=== PATIENT | female | born 1995 | race Hispanic/Latino ===

== ENCOUNTER 2019-03-28 08:55 | Inpatient (IN) | payer OTHER ==
[~2019-03-28] VITALS: Ht 157.5 cm; Wt 81.4 kg
[2019-03-28] MEDS ORDERED: MORPHINE SULFATE INJ 4 MG/ML INJ 1ML IV PRN (10:30)
[2019-03-28] MEDS ORDERED: HYDROGEN PEROXIDE 120 ML BTL ONE (11:22)
[2019-03-28] MEDS ORDERED: NEOSTIGMINE 1 MG/ML 10ML VIAL ONE (11:22)
[2019-03-28] MEDS ORDERED: BUPIVACAINE 0.25% 30ML SDV INJ ONE (11:23)
[2019-03-28 11:24] LABS: BASOPHILS % 0.3 % (0.0-1.0); EOSINOPHILS # (AUTO) 0.1 (0.0-0.4); EOSINOPHILS % 0.4 % (0.0-6.0); HEMATOCRIT 37.8 % (34.2-44.1); HEMOGLOBIN 12.6 g/dL (12.0-16.0); LYMPHOCYTES % 12.7 % (18.0-39.1); MEAN CORPUSCULAR HEMOGLOBIN 29.2 pg (28-32); MEAN CORPUSCULAR HGB CONC 33.3 g/dL (31-35); MEAN CORPUSCULAR VOLUME 87.7 fL (81-99); MONOCYTES # (AUTO) 0.7 (0.2-0.8); MONOCYTES % 4.4 % (4.4-11.3); NEUTROPHILS # (AUTO) 12.8 (2.1-6.9); NEUTROPHILS % 81.8 % (38.7-80.0); PLATELET COUNT 324 x10e3/uL (140-360); RED BLOOD COUNT 4.31 x10e6/uL (3.6-5.1); RED CELL DISTRIBUTION WIDTH 12.6 % (11.7-14.4)
[2019-03-28] MEDS ORDERED: ACETAMINOPHEN 1000 MG/100 ML 100 ML IV ONE (11:25)
--- NOTE | 2019-03-28 11:28 | NUR ---
SURGERY CONSENT SIGNED AND PLACED ON CHART
--- NOTE | 2019-03-28 11:31 | NUR ---
PT BEING TRANSPORTED BY OR TECH TO OR HOLDING AT THIS TIME.
[2019-03-28 11:35] LABS: ALANINE AMINOTRANSFERASE 95 IU/L (0-55); ALBUMIN 3.3 g/dL (3.5-5.0); ALBUMIN/GLOBULIN RATIO 0.7 (0.8-2.0); ALKALINE PHOSPHATASE 142 IU/L (40-150); ANION GAP 11.9 mmol/L (8-16); BLOOD UREA NITROGEN 12 mg/dL (7-26); BUN/CREATININE RATIO 18 (6-25); CARBON DIOXIDE 28 mmol/L (22-29); CHLORIDE 103 mmol/L (98-107); CREATININE, SERUM 0.65 mg/dL (0.57-1.11); EST GLOMERULAR FILTRATION RATE > 60 ML/MIN (60-); GLUCOSE 97 mg/dL (74-118); POTASSIUM 3.9 mmol/L (3.5-5.1); SODIUM 139 mmol/L (136-145)
[2019-03-28] MEDS ORDERED: SODIUM CHLORIDE 0.9% 1000ML 1,000 ML IV SCH (12:46)
[2019-03-28] MEDS ORDERED: ACETAMINOPHEN 325 MG TAB PO PRN (13:00)
[2019-03-28] MEDS ORDERED: HYDROMORPHONE 1MG/1ML INJ IV PRN (13:00)
[2019-03-28] MEDS ORDERED: HYDROCODONE/APAP 7.5MG-325MG 1 EA TAB PO PRN (13:00)
--- NOTE | 2019-03-28 13:43 | Operative Report ---
DATE OF PROCEDURE: 03/28/2019 SURGEON: Ramin Moe MD PREOPERATIVE DIAGNOSIS: Pilonidal abscess. POSTOPERATIVE DIAGNOSIS: Pilonidal abscess. PROCEDURE PERFORMED: Incision and drainage of pilonidal abscess. INDICATION AND FINDINGS: This is a 24-year-old female patient admitted with pain and swelling of the presacral region secondary to pilonidal abscess. INTRAOPERATIVE FINDINGS: Pilonidal abscess with surrounding mild cellulitis. DESCRIPTION OF PROCEDURE: With the patient lying on the operative table in the supine position after administration of general anesthesia, she was prepped and draped for incision and drainage of pilonidal abscess. The patient was placed in the left lateral decubitus position and then an area of skin close to the midline that was somewhat necrotic was excised in an elliptical fashion. The cavity entered. Loculations broken down. Necrotic tissue was debrided down to viable tissue. The cavity which measured about 1.5 x 1 inch was then irrigated. Bleeding points cauterized and then packed with Xeroform and Betadine sponge. Sterile dressing was applied. The patient tolerated the procedure well, taken to recovery room in stable condition. MD BRITTANI Leung/MODL /[id number]
[2019-03-28] MEDS ORDERED: KETOROLAC TROMETHAMINE 30 MG/ML VIAL IV PRN (14:00)
[2019-03-28] MEDS ORDERED: ONDANSETRON HCL INJ 2MG/ML 2ML 2 MG/ML VIAL IV PRN ×2 (14:00)
[2019-03-28] MEDS ORDERED: CEFTRIAXONE SOD 1 GM/NS 50 ML 50 ML IV SCH (14:00)
[2019-03-28] MEDS ORDERED: CLINDAMYCIN PHOS 900MG/ 50ML 50 ML IV SCH (14:00)
[2019-03-28] MEDS ORDERED: PROPOFOL IV EMULSION 10 MG/ML 20 ML VIAL ONE (14:07)
[2019-03-28] MEDS ORDERED: SEVOFLURANE INHAL SOLN 250 ML PEN BTL ONE (14:07)
[2019-03-28] MEDS ORDERED: DEXAMETHASONE SOD PHOS INJ 4 MG/ML VIAL ONE (14:07)
[2019-03-28] MEDS ORDERED: LIDOCAINE HCL 2% LOCAL INJ 5 ML SDV VIAL INJ ONE (14:07)
[2019-03-28] MEDS ORDERED: ONDANSETRON HCL INJ 2MG/ML 2ML 2 MG/ML VIAL ONE (14:07)
[2019-03-28] MEDS: CEFTRIAXONE SOD 1 GM/NS 50 ML 50 ML IV SCH (14:57)
[2019-03-28] MEDS: DEXTROSE 5%/LACTATED RINGERS 1,000 ML IV SCH (14:57)
[2019-03-28] MEDS ORDERED: MIDAZOLAM HCL 2 MG/2 ML VIAL ONE (15:05)
[2019-03-28] MEDS ORDERED: FENTANYL CITRATE/PF 100MCG/2 ML INJ ONE (15:05)
--- NOTE | 2019-03-28 15:05 | NUR ---
Recvd patient from PACU. AAOx3, dressing on rectal area is intact , not in any distress, call light in reach. at bed side
[2019-03-28 15:08] VITALS: BP 112/56
[2019-03-28 15:12] VITALS: BP 112/56
[2019-03-28] MEDS: CLINDAMYCIN PHOS 900MG/ 50ML 50 ML IV SCH ×2 (15:20→22:00)
[2019-03-28 20:00] VITALS: BP 119/58
--- NOTE | 2019-03-28 20:18 | NUR ---
RECEIVED PT IN BEDAOX3 DRESSING AT RECTAL AREA IS DRY AND INTACT RESPIRATIONS ARE EVEN AND UNLABORED LEFT AC 20G LR RUNNING AT 75 CC/HR FAMILY AT THE BEDSIDE .CALL LIGHT WITH IN REACH .CONTINUE TO MONITOR
[2019-03-28 20:32] VITALS: BP 119/58
[2019-03-29] VITALS (8 sets, daily range): BP systolic 102–118; BP diastolic 48–59
[2019-03-29] MEDS: ONDANSETRON HCL INJ 2MG/ML 2ML 2 MG/ML VIAL IV PRN ×4 (00:29→21:00)
[2019-03-29] MEDS: HYDROMORPHONE 1MG/1ML INJ IV PRN ×4 (00:29→21:00)
[2019-03-29] MEDS: CLINDAMYCIN PHOS 900MG/ 50ML 50 ML IV SCH ×3 (06:00→21:55)
--- NOTE | 2019-03-29 06:19 | NUR ---
PT C/O PAIN AND MEDICATED WITH DILAUDID.PT RESTING DRESS DRY AND INTACT.FAMILY ATTHE BEDSIDE .CALL LIGHT WITH IN REACH .CONTINUE TO MONITOR
--- NOTE | 2019-03-29 07:26 | NUR ---
pt alert resp even and unlabored pt able to make needs known, call light in reach, family member at bedside.
--- NOTE | 2019-03-29 07:55 | NUR ---
BEDSIDE REPORT GIVEN ON COMING TO THE REPORT
[2019-03-29] MEDS: DEXTROSE 5%/LACTATED RINGERS 1,000 ML IV SCH (09:54)
[2019-03-29] MEDS: CEFTRIAXONE SOD 1 GM/NS 50 ML 50 ML IV SCH (11:56)
[2019-03-29] MEDS: HYDROCODONE/APAP 7.5MG-325MG 1 EA TAB PO PRN (14:00)
--- NOTE | 2019-03-29 19:30 | NUR ---
report given to on coming nurse, pt stable at this time.
--- NOTE | 2019-03-29 19:55 | NUR ---
RECEIVED PT IN BED AOX3 .DENIES PAIN AT THIS TIME DRESSING DRY AND INTACT .FAMILY ATBEDSIDE .CALL LIGHT WITH IN REACH .CONTINUE TO MONITOR
[2019-03-30] VITALS: BP 117/58
[2019-03-30 04:00] VITALS: BP 121/57
[2019-03-30] MEDS: HYDROMORPHONE 1MG/1ML INJ IV PRN (04:00)
[2019-03-30] MEDS: ONDANSETRON HCL INJ 2MG/ML 2ML 2 MG/ML VIAL IV PRN (04:00)
[2019-03-30] MEDS: HYDROCODONE/APAP 7.5MG-325MG 1 EA TAB PO PRN ×2 (05:29→13:20)
[2019-03-30] MEDS: DEXTROSE 5%/LACTATED RINGERS 1,000 ML IV SCH (05:54)
[2019-03-30] MEDS: CLINDAMYCIN PHOS 900MG/ 50ML 50 ML IV SCH (06:00)
--- NOTE | 2019-03-30 06:35 | NUR ---
PT RESTED DURING THE NIGHT C/O PAIN AND GIVEN ORDERED PAIN MEDICATION .FAMILY AT THE BEDSIDE .CALL LIGHT WITH IN REACH .CONTINUE TO MONITOR
--- NOTE | 2019-03-30 07:14 | NUR ---
BEDSIDE REPORT GIVEN TO THE ONCOMING NURSE
[2019-03-30 07:20] VITALS: BP 115/51
--- NOTE | 2019-03-30 07:20 | NUR ---
PATIENT ASSISTED TO THE RESTROOM AND BACK TO BED. DRESSING INTACT TO BUTTOCK. BED IN LOWER POSITION, CALL LIGHT AT REACH.
[2019-03-30 08:00] VITALS: BP 115/51
--- NOTE | 2019-03-30 11:42 | NUR ---
PATIENT ASSISTED WITH SHOWER AND BACK TO BED. PACKING REMOVED FROM BUTTOCK WOUND AND TEACHING PROVIDED TO FAMILY BY MD. IN BED WITH CALL LIGHT AT REACH.
[2019-03-30 11:55] VITALS: BP 137/62
--- NOTE | 2019-03-30 12:31 | Discharge Summary ---
DISCHARGE DIAGNOSIS: Pilonidal abscess. PROCEDURES PERFORMED: Incision and drainage of pilonidal abscess with debridement of necrotic tissue on 03/28/2019. HISTORY OF PRESENT ILLNESS AND HOSPITALIZATION COURSE: Otherwise, healthy 24-year-old female, admitted with pilonidal abscess. The patient the same day of admission, underwent incision and drainage and debridement of necrotic tissue. Culture and sensitivities were taken that are pending. The patient was treated with intravenous antibiotics with clindamycin IV and Rocephin. The patient was discharged home on the second postop day. She was afebrile. Tolerating a regular diet well. There were no spikes. The cultures as previously stated were pending. The dressing was changed. The abscess was well drained. There was no evidence of cellulitis of undrained collection. She was discharged home on clindamycin 300 t.i.d. for a week and Septra 1 p.o. b.i.d. for 10 days. The was instructed in doing wet-to-dry dressings. She will be followed up in the office on Thursday following discharge. MD BRITTANI Leung/WILL /[id number]
[2019-03-30] MEDS ORDERED: TYLENOL WITH C1 EACH PO (14:31)
[2019-03-30] MEDS ORDERED: CLINDAMYCIN HC150 MG PO (14:33)
--- NOTE | 2019-03-30 15:30 | NUR ---
PATIENT DISCHARGED HOME. DISCHARGE INSTRUCTIONS, PRESCRIPTIONS, AND FOLLOW UP GIVEN TO PATIENT AND , THEY VERBALIZED UNDERSTANDING. IV TO LEFT AC REMOVED WITH TIP INTACT. ALL PERSONAL ITEMS TAKEN WITH PATIENT. REFUSED WHEEL CHAIR, BUT WAS ACCOMPANIED BY HOSPITAL STAFF TO FRONT LOBBY IN STABLE CONDITION.
== END 2019-03-30 15:26 | disposition home or self-care (01) | DRG 572 ==
LOC: EDBD 09:03 → ER 09:03 → OR 11:23 → INTOOBSV 12:50 → PACU V 12:50 → MED/SURG3 13:51 → OBSVTOIN 03-29 15:51
PROVIDERS: ADMIT Surgery; ATTEND Surgery
PROC: 0JB90ZZ Excision of Buttock Subcutaneous Tissue and Fascia, Open Approach (ICD-10-PCS; principal; 2019-03-29)
DX: L05.01 Pilonidal cyst with abscess (principal)
CPT/HCPCS: 36415; 80053; 82948; 85025; 99284; G0378; J0696; J1100; J1170; J2001; J2250; J2270; J2405; J2710; J3010; J7030

== ENCOUNTER → 2019-06-17 | Day surgery (SDC) | payer OTHER ==
[2019-06-16 10:05] LABS: BASOPHILS % 0.5 % (0.0-1.0); EOSINOPHILS # (AUTO) 0.1 (0.0-0.4); EOSINOPHILS % 1.1 % (0.0-6.0); HEMATOCRIT 37.9 % (34.2-44.1); HEMOGLOBIN 12.3 g/dL (12.0-16.0); LYMPHOCYTES # (AUTO) 2.4 (1.0-3.2); LYMPHOCYTES % 37.7 % (18.0-39.1); MEAN CORPUSCULAR HEMOGLOBIN 29.9 pg (28-32); MEAN CORPUSCULAR HGB CONC 32.5 g/dL (31-35); MONOCYTES # (AUTO) 0.3 (0.2-0.8); MONOCYTES % 5.3 % (4.4-11.3); NEUTROPHILS # (AUTO) 3.5 (2.1-6.9); NEUTROPHILS % 55.1 % (38.7-80.0); PLATELET COUNT 243 x10e3/uL (140-360); RED BLOOD COUNT 4.12 x10e6/uL (3.6-5.1); RED CELL DISTRIBUTION WIDTH 12.7 % (11.7-14.4)
[~2019-06-17] MED LIST: ACETAMINOPHEN 1000 MG/100 ML IV ONE; BUPIVACAINE 0.5%/EPI 30 ML SDV INJ ONE; CLINDAMYCIN HC150 MG PO; DEXAMETHASONE SOD PHOS INJ 4 MG/ML VIAL ONE; FENTANYL CITRATE/PF 100MCG/2 ML INJ ONE; GLYCOPYRROLATE INJ 0.2 MG/ML VIAL ONE; HYDROGEN PEROXIDE 120 ML BTL ONE; LIDOCAINE HCL 2% LOCAL INJ 5 ML SDV VIAL INJ ONE; MEPERIDINE HCL INJ 25 MG/ML VIAL ONE; MIDAZOLAM HCL 2 MG/2 ML VIAL ONE; NEOSTIGMINE 1 MG/ML 10ML VIAL ONE; ONDANSETRON HCL INJ 2MG/ML 2ML 2 MG/ML VIAL ONE; PROPOFOL IV EMULSION 10 MG/ML 20 ML VIAL ONE; ROCURONIUM BROMIDE 10 MG/ML 5ML VIAL ONE; SEVOFLURANE INHAL SOLN 250 ML PEN BTL ONE; TYLENOL WITH C1 EACH PO
--- NOTE | 2019-06-17 12:00 | Operative Report ---
DATE OF PROCEDURE: 06/17/2019 SURGEON: Ramin Moe MD PREOPERATIVE DIAGNOSIS: Pilonidal disease, status post I and D. POSTOPERATIVE DIAGNOSIS: Pilonidal disease, status post I and D. PROCEDURE PERFORMED: Excision of pilonidal disease previously drained primary closure with flap. GENERAL DENTIST/OWNER: DORI Tyler ESTIMATED BLOOD LOSS: Minimal. DRAINS: None. COMPLICATIONS: None. INDICATION AND FINDINGS: The patient is a 24-year-old female who had undergone several weeks ago incision and drainage of pilonidal disease abscess now admitted for definitive surgical treatment. INTRAOPERATIVE FINDINGS: The patient had a midline healed scar located in the presacral region without any evidence of infection. The area was excised in an elliptical fashion down to the presacral fascia, but not including the presacral fascia. The wound was then closed after raising full subcutaneous flaps. DESCRIPTION OF PROCEDURE: With the patient lying on the operative table in the supine position after administration of general anesthesia, she was prepped and draped for excision of pilonidal disease with flap closure. An elliptical incision was made that encompassed the scar and any residual palpable induration and the dissection was carried down through the skin and subcutaneous tissue down to the presacral fascia all of that was excised with no encounter any scar tissue in that location and there was no active infection. After we excised the specimen, we went ahead and cauterized bleeding points copiously irrigated the wound with saline and Betadine and then we raised full subcutaneous flaps with electrocautery to the right and to the left of the midline and then approximated the soft tissues with a combination of 0 Vicryl and 2-0 Vicryl. The skin was closed using 3-0 silk except for the middle portion of the wound which was closed using 0 silk. 0.5% Marcaine with epinephrine was given as a buccal block at the end of the case. The patient tolerated the procedure well, was taken to recovery room in stable condition. MD BRITTANI Leung/NOAL /[id number]
[2019-06-17 13:05] VITALS: BP 105/75
--- OUTSIDE RECORDS SUMMARY | 2019-06-24 11:50 | XMS REPORT ---
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 Conditions or Problems Problem Name Problem Code Onset Date Status Entry Date Provider Comment Standard Description Annotate Nausea and Vomiting in Active Rula Arreaga MD Unspecified vomiting of , antepartum condition or complication Supervision of normal first , third trimester V22.0 Active Rula Arreaga MD Supervision of normal first BMI 32.0-32.9 Active Lila Averkenyetta Body Mass Index 32.0-32.9, adult Musculoskeletal pain 729.1 Active Lila Quan Myalgia and myositis, unspecified Back pain 724.5 Active Rula Arreaga MD Backache, unspecified Obesity (BMI=30-39.9) Active Rula Arreaga MD Obesity, unspecified Rubella non-immune V49.89 Active Rula Arreaga MD Other specified conditions influencing health status 39 Weeks Gestation of Inactive Edilia OSBORN Encounter for unspecified screening of mother 39 Weeks Gestation of Inactive Edilia OSBORN 38 Weeks Gestation of Inactive Rula Arreaga MD Encounter for unspecified screening of mother 38 Weeks Gestation of Inactive Rula Arreaga MD Decreased movement, third trimester ICD-655.73 Inactive Edilia Christopher WHNP Gestation period greater than or equal to 37 weeks ICD-765.29 Inactive Edilia Christopher WHNP 36 weeks gestation of ICD-V28.9 Inactive Edilia Christopher WHNP Encounter for supervision of other normal , third trimester Inactive Edilia Christopher WHNP Supervision, other normal ICD-V22.1 Inactive Edilia Christopher WHNP 35 Weeks Gestation of Inactive Rula Arreaga MD Encounter for unspecified screening of mother 35 Weeks Gestation of Inactive Rula Arreaga MD Supervision of other high risk pregnancies, third trimester Inactive Edilia Christopher WHNP Vaginal bleeding ICD-623.8 Inactive Edilia Christopher WHNP 34 weeks gestation of ICD-V28.9 Inactive Edilia Christopher WHNP Supervision, other normal ICD-V22.1 Inactive Edilia Christopher WHNP 27 weeks gestation of ICD-V28.9 Inactive Edilia Christopher WHNP Supervision of other normal ICD-V22.1 Inactive Edilia Christopher WHNP 25 weeks gestation of ICD-V28.9 Inactive Edilia Christopher WHNP Supervision of other normal , second trimester ICD-V22.1 Inactive Edilia Christopher WHNP 13 weeks gestation of V28.9 Inactive Rula Arreaga MD Encounter for unspecified screening of mother 16 weeks gestation of ICD-V28.9 Inactive Edilia OSBORN 11 weeks gestation of ICD-V28.9 Inactive Edilia OSBORN Less than 8 weeks gestation of ICD-V28.9 Inactive Edilia OSBORN Supervision of normal first , first trimester V22.0 Inactive Rula Arreaga MD Supervision of normal first Supervision of normal first , second trimester ICD-V22.0 Inactive Edilia OSBORN Decreased movement, third trimester 655.73 Resolved Edilia OSBORN Decreased movements affecting management of mother, antepartum condition or complication Gestation period greater than or equal to 37 weeks 765.29 Resolved Edilia OSBORN 37 or more completed weeks of gestation 36 weeks gestation of V28.9 Resolved Edilia OSBORN Encounter for unspecified screening of mother Encounter for supervision of other normal , third trimester Resolved Edilia OSBORN Supervision of other normal Supervision, other normal V22.1 Resolved Edilia OSBORN Supervision of other normal Supervision of other high risk pregnancies, third trimester Resolved Edilia OSBORN Other high-risk Vaginal bleeding 623.8 Resolved Edilia OSBORN Other specified noninflammatory disorders of vagina 34 weeks gestation of V28.9 Resolved Edilia OSBORN Encounter for unspecified screening of mother Supervision, other normal V22.1 Resolved Edilia OSBORN Supervision of other normal 27 weeks gestation of V28.9 Resolved Edilia OSBORN Encounter for unspecified screening of mother Supervision of other normal V22.1 Resolved Edilia OSBORN Supervision of other normal 25 weeks gestation of V28.9 Resolved Edilia OSBORN Encounter for unspecified screening of mother Supervision of other normal , second trimester V22.1 Resolved Edilia OSBORN Supervision of other normal 16 weeks gestation of V28.9 Resolved Edilia OSBORN Encounter for unspecified screening of mother 11 weeks gestation of V28.9 Resolved Edilia OSBORN Encounter for unspecified screening of mother Less than 8 weeks gestation of V28.9 Resolved Edilia OSBORN Encounter for unspecified screening of mother Supervision of normal first , second trimester V22.0 Resolved Edilia OSBORN Supervision of normal first Medication List Medication Instructions Start Date Stop Date Generic Name NDC Status Provider Patient Instruction VITAFOL ULTRA 29-0.6-0.4-200 MG ORAL CAPSULE take 1 capsule daily VITAFOL ULTRA 29-0.6-0.4-200 MG ORAL CAPSULE PRENAT-FE [id number] Inactive VITAFOL ULTRA 29-0.6-0.4-200 MG ORAL CAPSULE take 1 capsule daily PRENAT-FE [id number] No Longer Active Rula Arreaga MD Active Vital Signs Date Name Value Unit Range Description blood pressure, diastolic 83 mm[Hg] BP sorensen blood pressure, systolic 136 mm[Hg] BP sys height E&M 63 [in_us] Bdy height pulse rate E&M 84 /min Heart rate respiratory rate E&M 16 /min Resp rate temperature E&M 97.8 [degF] Body temperature weight E&M 207 [lb_av] Weight Measured blood pressure, diastolic 85 mm[Hg] BP sorensen blood pressure, systolic 124 mm[Hg] BP sys height E&M 63 [in_us] Bdy height pulse rate E&M 96 /min Heart rate respiratory rate E&M 18 /min Resp rate temperature E&M 97.9 [degF] Body temperature weight E&M 203 [lb_av] Weight Measured blood pressure, diastolic 85 mm[Hg] BP sorensen blood pressure, systolic 125 mm[Hg] BP sys height E&M 63 [in_us] Bdy height pulse rate E&M 91 /min Heart rate respiratory rate E&M 20 /min Resp rate temperature E&M 97.7 [degF] Body temperature weight E&M 199.0 [lb_av] Weight Measured blood pressure, diastolic 80 mm[Hg] BP sorensen blood pressure, systolic 122 mm[Hg] BP sys height E&M 63 [in_us] Bdy height pulse rate E&M 93 /min Heart rate respiratory rate E&M 18 /min Resp rate temperature E&M 98.2 [degF] Body temperature weight E&M 195 [lb_av] Weight Measured blood pressure, diastolic 82 mm[Hg] BP sorensen blood pressure, systolic 115 mm[Hg] BP sys height E&M 63 [in_us] Bdy height pulse rate E&M 87 /min Heart rate temperature E&M 98.6 [degF] Body temperature blood pressure, diastolic 82 mm[Hg] BP sorensen blood pressure, systolic 126 mm[Hg] BP sys height E&M 63 [in_us] Bdy height pulse rate E&M 98 /min Heart rate respiratory rate E&M 20 /min Resp rate temperature E&M 98.2 [degF] Body temperature weight E&M 195 [lb_av] Weight Measured blood pressure, diastolic 79 mm[Hg] BP sorensen blood pressure, systolic 122 mm[Hg] BP sys pulse rate E&M 93 /min Heart rate respiratory rate E&M 14 /min Resp rate weight E&M 184 [lb_av] Weight Measured blood pressure, diastolic 79 mm[Hg] BP sorensen blood pressure, systolic 113 mm[Hg] BP sys height E&M 63 [in_us] Bdy height pulse rate E&M 80 /min Heart rate temperature E&M 98.7 [degF] Body temperature weight E&M 182.20 [lb_av] Weight Measured blood pressure, diastolic 80 mm[Hg] BP sorensen blood pressure, systolic 124 mm[Hg] BP sys pulse rate E&M 91 /min Heart rate respiratory rate E&M 14 /min Resp rate temperature E&M 98.6 [degF] Body temperature weight E&M 184 [lb_av] Weight Measured blood pressure, diastolic 78 mm[Hg] BP sorensen blood pressure, systolic 124 mm[Hg] BP sys pulse rate E&M 91 /min Heart rate respiratory rate E&M 14 /min Resp rate temperature E&M 98.0 [degF] Body temperature weight E&M 179 [lb_av] Weight Measured weight E&M 176 LBS [lb_av] Weight Measured blood pressure, diastolic 80 mm[Hg] BP sorensen blood pressure, systolic 130 mm[Hg] BP sys height E&M 63 [in_us] Bdy height temperature E&M 98.0 [degF] Body temperature weight E&M 176 [lb_av] Weight Measured blood pressure, diastolic 80 mm[Hg] BP sorensen blood pressure, systolic 122 mm[Hg] BP sys height E&M 63 [in_us] Bdy height pulse rate E&M 90 /min Heart rate temperature E&M 98.1 [degF] Body temperature weight E&M 171.20 [lb_av] Weight Measured blood pressure, diastolic 71 mm[Hg] BP sorensen blood pressure, systolic 106 mm[Hg] BP sys height E&M 63 [in_us] Bdy height pulse rate E&M 84 /min Heart rate respiratory rate E&M 14 /min Resp rate temperature E&M 98.2 [degF] Body temperature weight E&M 169 [lb_av] Weight Measured blood pressure, diastolic 82 mm[Hg] BP sorensen blood pressure, systolic 123 mm[Hg] BP sys height E&M 63 [in_us] Bdy height pulse rate E&M 80 /min Heart rate respiratory rate E&M 14 /min Resp rate temperature E&M 98.4 [degF] Body temperature weight E&M 171 [lb_av] Weight Measured Diagnostic Results Date Name Value Unit Range Description Lab Report: [id number] 7+Alc-Unbund, CBC With Differential/Platelet, Hgb Fra ... - Blood bank Rh antibody Negative Negative Lab Report: [id number] 7+Alc-Unbund, CBC With Differential/Platelet, Hgb Fra ... - Toxicology benzodiazepine screen, urine Negative Sscrqf=[id number] Lab Report: CBC With Differential/Platelet, Comp. Metabolic Panel (14), ... - Chemistry lactate dehydrogenase, serum 190 [iU]/L 119-226 Lab Report: AFP Tetra - Chemistry human chorionic gonadotropin, total, serum 33038 m[iU]/mL Lab Report: AFP Tetra - Lab dimeric inhibition A, multiples of median 0.88 (?) {MoM} Lab Report: [id number] 7+Alc-Unbund, CBC With Differential/Platelet, Hgb Fra ... - Blood bank ABO blood group O Office Visit: Return: s10 - Genetics/fertility test, type home Lab Report: [id number] 7+Alc-Unbund, CBC With Differential/Platelet, Hgb Fra ... - Genetics/fertility cystic fibrosis, screen Comment: Lab Report: [id number] 7+Alc-Unbund, CBC With Differential/Platelet, Hgb Fra ... - Chemistry hepatitis B surface antigen Negative Negative Lab Report: CBC With Differential/Platelet, Comp. Metabolic Panel (14), ... - Chemistry uric acid, serum 5.1 mg/dL 2.5-7.1 chloride, serum 106 mmol/L 96-106 Lab Report: AFP Tetra - Chemistry human chorionic gonadotropin, total, serum, multiples of median 1.11 (?) {MoM} Lab Report: [id number] 7+Alc-Unbund, CBC With Differential/Platelet, Hgb Fra ... - Toxicology phencyclidine screen, urine Negative ng/mL Cutoff=25 Lab Report: [id number] 7+Alc-Unbund, CBC With Differential/Platelet, Hgb Fra ... - Hematology hemoglobin solubility test Negative Negative Lab Report: CBC With Differential/Platelet, Comp. Metabolic Panel (14), ... - Chemistry urea nitrogen, blood 7 mg/dL 6-20 Lab Report: [id number] 7+Alc-Unbund, CBC With Differential/Platelet, Hgb Fra ... - Hematology hemoglobin A2 2.3 % 1.8-3.2 Office Visit: Return Visit-s15 - Urinalysis leukocyte esterase, urine, by dipstick negative Lab Report: CBC With Differential/Platelet, Comp. Metabolic Panel (14), ... - Hematology mean corpuscular hemoglobin concentration, RBC 33.5 G/DL % 31.5-35.7 Office Visit: Return: s14 - Microbiology Herpes Simplex Virus Genital no Lab Report: [id number] 7+Alc-Unbund, CBC With Differential/Platelet, Hgb Fra ... - Hematology hemoglobin A 97.7 % 96.4-98.8 Lab Report: CBC With Differential/Platelet, Comp. Metabolic Panel (14), ... - Hematology erythrocyte (RBC) count 3.76 X10E6/UL 10*6/mm3 3.77-5.28 Office Visit: Return: 39w3d - Urinalysis nitrite, urine, semiquantitative Neg Office Visit: Return Visit-s15 - Urinalysis urine color yellow Lab Report: CBC With Differential/Platelet, Comp. Metabolic Panel (14), ... - Chemistry Absolute Neutrophils 5.6 X10E3/UL 10*3/uL 1.4-7.0 Office Visit: Return Visit-s15 - Urinalysis bilirubin, urine negative Lab Report: CBC With Differential/Platelet, Comp. Metabolic Panel (14), ... - Chemistry urea nitrogen/creatinine ratio, serum 14 9-23 Lab Report: CBC With Differential/Platelet, Comp. Metabolic Panel (14), ... - Hematology mean corpuscular volume, RBC 88 fL 79-97 Lab Report: [id number] 7+Alc-Unbund, CBC With Differential/Platelet, Hgb Fra ... - Toxicology cocaine, urine Negative Muohub=[id number] Lab Report: CBC With Differential/Platelet, Comp. Metabolic Panel (14), ... - Hematology monocytes as percent of blood leukocytes 4 % Not Estab. Lab Report: CBC With Differential/Platelet, Comp. Metabolic Panel (14), ... - Chemistry albumin/globulin ratio, serum 1.3 1.2-2.2 creatinine, serum 0.51 mg/dL 0.57-1.00 creatinine, random, urine 72.0 mg/dL Not Estab. bilirubin, serum, total <0.2 mg/dL mg/dL 0.0-1.2 Lab Report: Pap IG, rfx HPV ASCU - Lab Human Papillomavirus test result HPVNotTested Lab Report: CBC With Differential/Platelet, Comp. Metabolic Panel (14), ... - Hematology Eosinophil Absolute Count 0.1 X10E3/UL 10*3/uL 0.0-0.4 Lab Report: Ct, Ng, Trich vag by LORETTA - Lab chlamydia DNA probe Negative Negative Office Visit: Return Visit-s15 - Urinalysis appearance, urine clear blood in urine (hemoglobin) by dipstick negative Lab Report: CBC With Differential/Platelet, Comp. Metabolic Panel (14), ... - Chemistry aspartate aminotransferase (SGOT), serum 23 U/L 0-40 Lab Report: CBC With Differential/Platelet, Comp. Metabolic Panel (14), ... - Hematology red blood cell distribution width 15.5 % 12.3-15.4 leukocyte count, blood 8.0 X10E3/UL 10*3/mm3 3.4-10.8 Office Visit: Return Visit-s15 - Urinalysis pH, urine, semiquantitative 7.0 Lab Report: CBC With Differential/Platelet, Comp. Metabolic Panel (14), ... - Chemistry potassium, serum 3.9 mmol/L 3.5-5.2 Office Visit: Return: 39w3d - Tower Hoist Operator estimated delivery date by last menstrual period 11/07/2018 Lab Report: [id number] 7+Alc-Unbund, CBC With Differential/Platelet, Hgb Fra ... - Hematology hemoglobin F 0.0 % 0.0-2.0 Lab Report: CBC With Differential/Platelet, Comp. Metabolic Panel (14), ... - Chemistry albumin, serum 3.4 g/dL 3.5-5.5 immature granulocytes, percentage of total cells, blood 0 % Not Estab. Lab Report: CBC With Differential/Platelet, Comp. Metabolic Panel (14), ... - Hematology lymphocyte count, blood, automated 2.0 X10E3/UL 10*3/mm3 0.7-3.1 Lab Report: [id number] 7+Alc-Unbund, CBC With Differential/Platelet, Hgb Fra ... - Toxicology opiates, urine, semiquantitative Negative Cltaws=212 Lab Report: CBC With Differential/Platelet, Comp. Metabolic Panel (14), ... - Hematology hematocrit, blood 33.1 % 34.0-46.6 Lab Report: Ct, Ng, Trich vag by LORETTA - Microbiology Neisseria gonorrhoeae DNA probe Negative Negative Lab Report: CBC With Differential/Platelet, Comp. Metabolic Panel (14), ... - Chemistry sodium, serum 138 mmol/L 134-144 Lab Report: [id number] 7+Alc-Unbund, CBC With Differential/Platelet, Hgb Fra ... - Urinalysis urine culture No growth Lab Report: AFP Tetra - Chemistry alpha feto-protein, maternal QUAD screen *Screen Negative* Lab Report: CBC With Differential/Platelet, Comp. Metabolic Panel (14), ... - Hematology neutrophils as percent of blood leukocytes 70 % Not Estab. Lab Report: [id number] 7+Alc-Unbund, CBC With Differential/Platelet, Hgb Fra ... - Toxicology amphetamine screen, urine Negative Bqtxeb=[id number] Lab Report: Strep Gp B LORETTA+Rflx - Microbiology group B streptococcus culture Negative Negative Lab Report: CBC With Differential/Platelet, Comp. Metabolic Panel (14), ... - Hematology basophils as percent of blood leukocytes 0 % Not Estab. Office Visit: Return: 39w3d - Urinalysis protein, urine, semiquantitative (dipstick) Neg Lab Report: AFP Tetra - Chemistry unconjugated estriol 0.67 NG/ML m[iU]/mL Lab Report: CBC With Differential/Platelet, RPR, Rfx Qn RPR/Confirm TP, ... - Serology rapid plasma reagin antibody, serum Non Reactive Non Reactive Lab Report: [id number] 7+Alc-Unbund, CBC With Differential/Platelet, Hgb Fra ... - Serology rubella antibody, serum, IgG <0.90 Immune >0.99 Lab Report: CBC With Differential/Platelet, Comp. Metabolic Panel (14), ... - Chemistry carbon dioxide, venous blood 16 mmol/L 20-29 Lab Report: CBC With Differential/Platelet, RPR, Rfx Qn RPR/Confirm TP, ... - Chemistry blood glucose, 1 hour after 50 gm oral glucose 107 mg/dL 65-139 Lab Report: [id number] 7+Alc-Unbund, CBC With Differential/Platelet, Hgb Fra ... - Chemistry cannabinoid screen, urine Negative ng/mL Cutoff=50 Lab Report: CBC With Differential/Platelet, Comp. Metabolic Panel (14), ... - Chemistry calcium, serum 8.9 mg/dL 8.7-10.2 alanine aminotransferase (SGPT), serum 14 U/L 0-32 Lab Report: CBC With Differential/Platelet, Comp. Metabolic Panel (14), ... - Hematology mean corpuscular hemoglobin, RBC 29.5 pg 26.6-33.0 Lab Report: [id number] 7+Alc-Unbund, CBC With Differential/Platelet, Hgb Fra ... - Hematology hemoglobin S 0.0 % 0.0 Office Visit: Return Visit-s15 - Urinalysis specific gravity, urine 1.005 Lab Report: CBC With Differential/Platelet, Comp. Metabolic Panel (14), ... - Chemistry protein, total, serum 6.1 g/dL 6.0-8.5 alkaline phosphatase, serum 180 U/L 39-117 Lab Report: CBC With Differential/Platelet, Comp. Metabolic Panel (14), ... - Hematology hemoglobin, blood 11.1 g/dL 11.1-15.9 Lab Report: [id number] 7+Alc-Unbund, CBC With Differential/Platelet, Hgb Fra ... - Blood bank Rh antigen Positive Lab Report: [id number] 7+Alc-Unbund, CBC With Differential/Platelet, Hgb Fra ... - Chemistry Hemoglobin Variant 0.0 % 0.0 Lab Report: CBC With Differential/Platelet, Comp. Metabolic Panel (14), ... - Hematology lymphocytes as percent of blood leukocytes 25 % Not Estab. Office Visit: Return: / s12 - Tower Hoist Operator estimated date of confinement , mother of baby 11/07/2018 Office Visit: Return Visit-s15 - Urinalysis glucose, urine, semiquantitative negative Lab Report: [id number] 7+Alc-Unbund, CBC With Differential/Platelet, Hgb Fra ... - Toxicology barbiturates screen, urine Negative Tsgvjc=762 Lab Report: CBC With Differential/Platelet, Comp. Metabolic Panel (14), ... - Genetics/fertility eGFR if 159 mL/min/1.73m2 >59 Lab Report: CBC With Differential/Platelet, Comp. Metabolic Panel (14), ... - Hematology basophil count, absolute 0.0 x10E3/uL 0.0-0.2 Lab Report: CBC With Differential/Platelet, Comp. Metabolic Panel (14), ... - Chemistry globulin, serum 2.7 1.5-4.5 Estimated Glomerular Filtration Rate (calc) 138 mL/min/1.73m2 >59 Lab Report: AFP Tetra - Chemistry alpha-1 fetoprotein, maternal ,serum, multiples of median 0.82 (?) {MoM} Lab Report: CBC With Differential/Platelet, Comp. Metabolic Panel (14), ... - Hematology eosinophils as percent of blood leukocytes 1 % Not Estab. Lab Report: AFP Tetra - Chemistry alpha-fetoprotein interpretation of results 20.6 Lab Report: CBC With Differential/Platelet, Comp. Metabolic Panel (14), ... - Chemistry blood glucose, random 77 mg/dL 65-99 protein, total urine random 18.7 mg/dL Not Estab. Office Visit: Return Visit-s15 - Urinalysis urobilinogen, urine, semiquantitative (dipstick) negative Lab Report: [id number] 7+Alc-Unbund, CBC With Differential/Platelet, Hgb Fra ... - Hematology hemoglobin C 0.0 % 0.0 Lab Report: CBC With Differential/Platelet, Comp. Metabolic Panel (14), ... - Hematology monocyte count, blood, automated 0.3 X10E3/UL 10*3/uL 0.1-0.9 platelet count 172 X10E3/UL 10*3/mm3 150-379 Office Visit: Return: 39w3d - Urinalysis ketones, urine, by test strip Neg Encounters Date Encounter Provider Code Facility 16:34:23 CDT Est Patient Exp Problem - 11159 Edilia OSBORN CPT-82617 [facility] ART OBJECTS REPAIRER 11:31:21 CDT Est Patient Exp Problem - 53561 Rula Arreaga MD CPT-39291 [facility] ART OBJECTS REPAIRER 16:58:36 CDT Est Patient Exp Problem - 79659 Rula Arreaga MD CPT-45388 [facility] ART OBJECTS REPAIRER 16:55:47 CDT Est Patient Exp Problem - 52850 Rula Arreaga MD CPT-24324 [facility] ART OBJECTS REPAIRER 16:55:19 CDT Est Patient Exp Problem - 29736 Rula Arreaga MD CPT-92413 [facility] ART OBJECTS REPAIRER 10:31:34 MANAGER TRANSITION Est Patient Exp Problem - 21121 Rula Arreaga MD CPT-36209 [facility] ART OBJECTS REPAIRER 10:12:45 MANAGER TRANSITION New Patient Detailed - 73332 Lila Quan CPT-45285 [facility] 09:49:19 MANAGER TRANSITION Est Patient Exp Problem - 63141 Rula Arreaga MD CPT-48783 [facility] ART OBJECTS REPAIRER 16:26:22 MANAGER TRANSITION Est Patient Exp Problem - 00627 Wisam Jacobs MD CPT-25921 [facility] ART OBJECTS REPAIRER 16:25:35 CDT Est Patient Exp Problem - 75236 Rula Arreaga MD CPT-63788 [facility] ART OBJECTS REPAIRER 17:10:23 CDT Est Patient Exp Problem - 79588 Rula Arreaga MD CPT-20462 [facility] ART OBJECTS REPAIRER 14:25:15 CDT New Patient Comprehensive - 05895 Rula Arreaga MD CPT-16654 [facility] ART OBJECTS REPAIRER Procedures Code Procedure Name Date Entry Date Standard Description CPT-45869 Urinalysis - Dip only - In House 16:34:23 CDT CPT-70216 Urinalysis - Dip only - In House 11:31:21 CDT CPT-75737 Urinalysis - Dip only - In House 16:58:36 CDT CPT-57781 Urinalysis - - In House 16:55:19 CDT CPT-30904 Urinalysis - Dip only - In House 09:49:19 MANAGER TRANSITION CPT-38154 Urinalysis - Dip only - In House 16:25:35 CDT
--- OUTSIDE RECORDS SUMMARY | 2019-06-24 11:51 | XMS REPORT ---
Author Author [facility] Address Unknown Phone Unavailable Care Team Providers Care Tablet Repair Name Role Phone Unavailable Unavailable Problems This patient has no known problems. Allergies, Adverse Reactions, Alerts This patient has no known allergies or adverse reactions. Medications This patient has no known medications. Results Test Description Test Time Test Comments Text Results Atomic Results Result Comments US OB Greater Than 14 Weeks 2018-05-29 13:07:08 Patient: JACKIE SLAUGHTER Date/Time05/29/2018 12:42 CSTReason for ExamAbdominal painReportLocation: [id number]: Vaginal bleeding.FINDINGS: Transabdominal images of the pelvis were obtained. There is a single gestational/amniotic sac with a viable intrauterine gestation in breech presentation with heart rate measuring 163 beats per minute. The placenta is posterior with no evidence of abruption or previa. Amniotic fluid is within normal limits. Cervical length 4.6 cm.BIPARIETAL DIAMETER 34 mm, 16 weeks 4 days.HEAD CIRCUMFERENCE 128 mm, 16 weeks 4 days.ABDOMINAL CIRCUMFERENCE 21 mm, 16 weeks 3 days.FEMUR LENGTH 106 mm, 16 weeks 4 days.Estimated menstrual age is 16 weeks 4 d ays with estimated date of confinement 11/09/2018. Estimated weight is 158 grams. anatomy is limited due to the early gestational age without any gross abnormality. The maternal adnexa were not well seen.IMPRESSION:1. Single viable intrauterine gestation with estimated gestational age 16 weeks 4 days.2. Limited negative anatomic survey. Recommend follow-up in 2-4 weeks for assessment of anatomy. Final Dictated by: MD Nahid, Sukumar DT/TM: 05/29/2018 1:02 pmSigned by: MD Whitfield SankamanSigned (Electronic Signature): 05/29/2018 1:07 pm
--- OUTSIDE RECORDS SUMMARY | 2019-06-24 11:51 | XMS REPORT ---
Author Author Admin, [place] Organization [facility] Address [address] [place] [address] Phone Allergies, Adverse Reactions, Alerts Allergy Name Reaction Description Start Date Severity Status Provider No Known Allergies Westley Aguilar [employer] Conditions or Problems Problem Name Problem Code Onset Date Status Entry Date Provider Comment Standard Description Annotate Nausea and Vomiting in Active Rula Arreaga MD Unspecified vomiting of , antepartum condition or complication Supervision of normal first , third trimester V22.0 Active Rula Arreaga MD Supervision of normal first BMI 32.0-32.9 Active Lilahaydee Quan Body Mass Index 32.0-32.9, adult Musculoskeletal pain [...] VITAFOL ULTRA 29-0.6-0.4-200 MG ORAL CAPSULE PRENAT-FE [id number] Inactive VITAFOL ULTRA 29-0.6-0.4-200 MG ORAL CAPSULE take 1 capsule daily PRENAT-FE [id number] No Longer Active Rual Arraega MD Active Vital Signs Date Name Value [...] Name Value Unit Range Description Lab Report: [id number] 7+Alc-Unbund, CBC With Differential/Platelet, Hgb Fra ... - Blood bank Rh antibody Negative Negative Lab Report: [id number] 7+Alc-Unbund, CBC With Differential/Platelet, Hgb Fra ... - Toxicology benzodiazepine screen, urine Negative Erpbez=233 Lab Report: CBC With Differential/Platelet, Comp. Metabolic Panel (14), ... - Chemistry lactate dehydrogenase, serum 190 [iU]/L 119-226 Lab Report: AFP Tetra - Chemistry human chorionic gonadotropin, total, serum 97892 m[iU]/mL Lab Report: AFP Tetra - Lab dimeric inhibition A, multiples of median 0.88 (?) {MoM} Lab Report: [id number] 7+Alc-Unbund, CBC With Differential/Platelet, Hgb Fra ... - Blood bank ABO blood group O Office Visit: Return: s10 - Genetics/fertility test, type home Lab Report: [id number] 7+Alc-Unbund, CBC With Differential/Platelet, Hgb Fra ... - Genetics/fertility cystic fibrosis, screen Comment: Lab Report: [id number] 7+Alc-Unbund, CBC With Differential/Platelet, Hgb Fra ... - Chemistry hepatitis B surface antigen Negative Negative Lab Report: CBC With Differential/Platelet, Comp. Metabolic Panel (14), ... - Chemistry uric acid, serum 5.1 mg/dL 2.5-7.1 chloride, serum 106 mmol/L 96-106 Lab Report: AFP Tetra - Chemistry human chorionic gonadotropin, total, serum, multiples of median 1.11 (?) {MoM} Lab Report: [id number] 7+Alc-Unbund, CBC With Differential/Platelet, Hgb Fra ... - Toxicology phencyclidine screen, urine Negative ng/mL Cutoff=25 Lab Report: [id number] 7+Alc-Unbund, CBC With Differential/Platelet, Hgb Fra ... - Hematology hemoglobin solubility test Negative Negative Lab Report: CBC With Differential/Platelet, Comp. Metabolic Panel (14), ... - Chemistry urea nitrogen, blood 7 mg/dL 6-20 Lab Report: [id number] 7+Alc-Unbund, CBC With Differential/Platelet, Hgb Fra ... - Hematology hemoglobin A2 2.3 % 1.8-3.2 Office Visit: Return Visit-s15 - Urinalysis leukocyte esterase, urine, by dipstick negative Lab Report: CBC With Differential/Platelet, Comp. Metabolic Panel (14), ... - Hematology mean corpuscular hemoglobin concentration, RBC 33.5 G/DL % 31.5-35.7 Office Visit: Return: s14 - Microbiology Herpes Simplex Virus Genital no Lab Report: [id number] 7+Alc-Unbund, CBC With Differential/Platelet, Hgb Fra ... [...] volume, RBC 88 fL 79-97 Lab Report: [id number] 7+Alc-Unbund, CBC With Differential/Platelet, Hgb Fra ... - Toxicology cocaine, urine Negative Trlcad=313 Lab Report: CBC With Differential/Platelet, Comp. Metabolic Panel (14), ... - Hematology monocytes as percent of blood leukocytes 4 % Not Estab. Lab Report: CBC With Differential/Platelet, Comp. Metabolic Panel (14), ... - Chemistry creatinine, serum 0.51 mg/dL 0.57-1.00 albumin/globulin ratio, serum 1.3 1.2-2.2 creatinine, random, urine 72.0 mg/dL Not Estab. [...] mmol/L 3.5-5.2 Office Visit: Return: 39w3d - [employer] estimated delivery date by last menstrual period 11/07/2018 Lab Report: [id number] 7+Alc-Unbund, CBC With Differential/Platelet, Hgb Fra ... - Hematology hemoglobin F 0.0 % 0.0-2.0 Lab Report: CBC With Differential/Platelet, Comp. Metabolic Panel (14), ... - Chemistry immature granulocytes, percentage of total cells, blood 0 % Not Estab. albumin, serum 3.4 g/dL 3.5-5.5 Lab Report: CBC With Differential/Platelet, Comp. Metabolic Panel (14), ... - Hematology lymphocyte count, blood, automated 2.0 X10E3/UL 10*3/mm3 0.7-3.1 Lab Report: [id number] 7+Alc-Unbund, CBC With Differential/Platelet, Hgb Fra ... - Toxicology opiates, urine, semiquantitative Negative Qlwwpn=[id number] Lab Report: CBC With Differential/Platelet, Comp. Metabolic Panel (14), ... - Hematology hematocrit, blood 33.1 % 34.0-46.6 Lab Report: Ct, Ng, Trich vag by LORETTA - Microbiology Neisseria gonorrhoeae DNA probe Negative Negative Lab Report: CBC With Differential/Platelet, Comp. Metabolic Panel (14), ... - Chemistry sodium, serum 138 mmol/L 134-144 Lab Report: [id number] 7+Alc-Unbund, CBC With Differential/Platelet, Hgb Fra ... - Urinalysis urine culture No growth Lab Report: AFP Tetra - Chemistry alpha feto-protein, maternal QUAD screen *Screen Negative* Lab Report: CBC With Differential/Platelet, Comp. Metabolic Panel (14), ... - Hematology neutrophils as percent of blood leukocytes 70 % Not Estab. Lab Report: [id number] 7+Alc-Unbund, CBC With Differential/Platelet, Hgb Fra ... - Toxicology amphetamine screen, urine Negative Uvdqux=[id number] Lab Report: Strep Gp B LORETTA+Rflx - [...] serum Non Reactive Non Reactive Lab Report: [id number] 7+Alc-Unbund, CBC With Differential/Platelet, Hgb Fra ... - Serology rubella antibody, serum, IgG <0.90 Immune >0.99 Lab Report: CBC With Differential/Platelet, Comp. Metabolic Panel (14), ... - Chemistry carbon dioxide, venous blood 16 mmol/L 20-29 Lab Report: CBC With Differential/Platelet, RPR, Rfx Qn RPR/Confirm TP, ... - Chemistry blood glucose, 1 hour after 50 gm oral glucose 107 mg/dL 65-139 Lab Report: [id number] 7+Alc-Unbund, CBC With Differential/Platelet, Hgb Fra ... - Chemistry cannabinoid screen, urine Negative ng/mL Cutoff=50 Lab Report: CBC With Differential/Platelet, Comp. Metabolic Panel (14), ... - Chemistry calcium, serum 8.9 mg/dL 8.7-10.2 alanine aminotransferase (SGPT), serum 14 U/L 0-32 Lab Report: CBC With Differential/Platelet, Comp. Metabolic Panel (14), ... - Hematology mean corpuscular hemoglobin, RBC 29.5 pg 26.6-33.0 Lab Report: [id number] 7+Alc-Unbund, CBC With Differential/Platelet, Hgb Fra ... [...] hemoglobin, blood 11.1 g/dL 11.1-15.9 Lab Report: [id number] 7+Alc-Unbund, CBC With Differential/Platelet, Hgb Fra ... - Blood bank Rh antigen Positive Lab Report: [id number] 7+Alc-Unbund, CBC With Differential/Platelet, Hgb Fra ... - Chemistry Hemoglobin Variant 0.0 % 0.0 Lab Report: CBC With Differential/Platelet, Comp. Metabolic Panel (14), ... - Hematology lymphocytes as percent of blood leukocytes 25 % Not Estab. Office Visit: Return: / s12 - [employer] estimated date of confinement , mother of baby 11/07/2018 Office Visit: Return Visit-s15 - Urinalysis glucose, urine, semiquantitative negative Lab Report: [id number] 7+Alc-Unbund, CBC With Differential/Platelet, Hgb Fra ... - Toxicology barbiturates screen, urine Negative Mefqya=[id number] Lab Report: CBC With Differential/Platelet, Comp. Metabolic [...] urobilinogen, urine, semiquantitative (dipstick) negative Lab Report: [id number] 7+Alc-Unbund, CBC With Differential/Platelet, Hgb Fra ... [...] 16:34:23 CDT Est Patient Exp Problem - 19910 Edilia Christopher IRENA CPT-09695 [facility] [employer] 11:31:21 CDT Est Patient Exp Problem - 34248 Rula Arreaga MD CPT-14232 [facility] [employer] 16:58:36 CDT Est Patient Exp Problem - 19166 Rula Arreaga MD CPT-63752 [facility] [employer] 16:55:47 CDT Est Patient Exp Problem - 96541 Rula Arreaga MD CPT-23017 [facility] [employer] 16:55:19 CDT Est Patient Exp Problem - 51149 Rula Arreaga MD CPT-96283 [facility] [employer] 10:31:34 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 Est Patient Exp Problem - 17960 Rula Arreaga MD CPT-44963 [facility] [employer] 10:12:45 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 New Patient Detailed - 76483 Lila Quan CPT-92501 [facility] 09:49:19 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 Est Patient Exp Problem - 65127 Rula Arreaga MD CPT-17303 [facility] [employer] 16:26:22 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 Est Patient Exp Problem - 02271 Wisam Jacobs MD CPT-59550 [facility] [employer] 16:25:35 CDT Est Patient Exp Problem - 45437 Rula Arreaga MD CPT-76475 [facility] [employer] 17:10:23 CDT Est Patient Exp Problem - 00380 Rula Arreaga MD CPT-57621 [facility] [employer] 14:25:15 CDT New Patient Comprehensive - 19750 Rula Arreaga MD CPT-87630 [facility] [employer] Procedures Code Procedure Name Date Entry Date Standard Description CPT-24839 Urinalysis - Dip only - In House 16:34:23 CDT CPT-46213 Urinalysis - Dip only - In House 11:31:21 CDT CPT-61474 Urinalysis - Dip only - In House 16:58:36 CDT CPT-68931 Urinalysis - - In House 16:55:19 CDT CPT-54750 Urinalysis - Dip only - In House 09:49:19 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 CPT-03306 Urinalysis - Dip only - In House 16:25:35 CDT
== END | disposition home or self-care (01) ==
LOC: OR 06:43
PROVIDERS: ATTEND Surgery
DX: L05.91 Pilonidal cyst without abscess (principal); Z87.891 Personal history of nicotine dependence; Z01.812 Encounter for preprocedural laboratory examination
CPT/HCPCS: 11772; 36415; 81025; 85025; 88304; J2175; J2250; J2405; J2710; J3010; J1100; J2001